=== PATIENT | female | born 2000 | race Caucasian/White ===

== ENCOUNTER 2024-01-09 20:00 | Emergency (ER) | payer OTHER ==
[2024-01-09 20:14] VITALS: BP 132/95; PULSE 80; RESP 15; TEMP 97.8; BMI 21.7
[2024-01-09] MEDS ORDERED: FLUORESCEIN NA 1 EA STRIP ONE (20:19)
[2024-01-09] MEDS ORDERED: TETRACAINE 0.5% OPHTH SOLN 2 ML BOTTLE ONE (20:19)
[2024-01-09] MEDS: TETRACAINE 0.5% HCL 0.6ML DROPPER.BOTTLE OD ONE (20:20)
[2024-01-09] MEDS: FLUORESCEIN NA 1 EA STRIP OD ONE (20:25)
== END 2024-01-09 20:47 | disposition home or self-care (01) ==
LOC: FER 20:00
DX: H53.8 Other visual disturbances (principal); H50.011 Monocular esotropia, right eye
CPT/HCPCS: 99283-25